=== PATIENT | female | born 1950 | race Caucasian/White ===

== ENCOUNTER 2021-11-30 20:49 | Observation (INO) ==
[2021-12-01] MEDS ORDERED: Ondansetron ODT 4 MG TAB.RAPDIS SL PRN
[2021-12-01] MEDS ORDERED: Naloxone 0.4 MG/ML INJ IVP PRN
[2021-12-01] MEDS ORDERED: Acetaminophen 325 MG TABLET PO PRN
[2021-12-01] MEDS ORDERED: Melatonin 3 MG TABLET PO PRN
[2021-12-01] MEDS ORDERED: Nitroglycerin 0.4 MG TAB.SUBL SL PRN (00:03)
[2021-12-01] MEDS ORDERED: D5% in Water 1,000 ML IVC PRN (00:04)
[2021-12-01] MEDS ORDERED: Dextrose Gel 15 GM/37.5 ML TUBE PO PRN ×2 (00:04)
[2021-12-01] MEDS ORDERED: *HR* Dextrose 50 % in Water (Syg) 50 ML SYRINGE IVP PRN (00:04)
[2021-12-01] MEDS: 0.9 % Sodium Chloride 1,000 ML IVC SCH ×2 (00:31→14:06)
[2021-12-01] MEDS ORDERED: clonazePAM 0.5 MG TABLET PO ONE (00:34)
[2021-12-01 02:46] LABS: Hematocrit 37.3 % (35.3-44.9); Hemoglobin 12.6 g/dL (11.5-15.4); Mean Corpuscular HGB Conc 33.8 g/dL (31.6-35.5); Mean Corpuscular Hemoglobin 27.5 pg (28.0-33.3); Mean Corpuscular Volume 81.3 fL (83.0-100.0); Mean Platelet Volume 8.8 fL (9.4-12.4); Platelet Count 430 K/mcL (140-400); Red Blood Count 4.59 M/mcL (3.82-4.97); Red Cell Distribution Width 13.4 % (11.5-14.5); White Blood Count 13.1 K/mcL (4.3-11.1)
[2021-12-01 02:49] LABS: Estimated Average Glucose 123 mg/dl; Hemoglobin A1C 5.9 %
[2021-12-01 03:09] LABS: Calcium 9.3 mg/dL (8.6-10.3); Chol/HDL Ratio 3.8 (0-4.9); Phosphorous 4.3 mg/dL (2.7-4.5); Potassium 3.4 mEq/L (3.5-5.1)
[2021-12-01 03:21] LABS: Thyroid Stimulating Hormone 0.747 mcIU/mL (0.340-5.600)
[2021-12-01] MEDS ORDERED: Regadenoson 0.4 MG/5 ML SYRINGE IVP ONE (05:44)
[2021-12-01 07:39] LABS: Bacteria,Urine Few per hpf (None-Few); Bilirubin,Urine Negative (Negative); Blood,Urine Negative (Negative); Clarity,Urine Clear (Clear); Color,Urine Colorless (Yellow); Glucose,Urine (UA) Normal (Normal); Ketones,Urine Negative (Negative); Leukocyte Esterase,Urine Trace (Negative); Mucus,Urine Few per lpf (None-Few); Nitrite,Urine Negative (Negative); PH,Urine 6.5 pH Units (5.0-8.0); Protein,Urine Negative (Neg-Trace); RBC,Urine 0-3 per hpf (0-3); Specific Gravity,Urine 1.016 (1.010-1.025); Squamous Epithelial Cell,Urine Few per hpf (None-Few); Urobilinogen,Urine Normal (Normal); WBC,Urine 0-3 per hpf (0-3)
[2021-12-01 07:43] LABS: Amphetamine Screen,Urine Negative ng/mL (Cutoff=1000); Barbiturate Screen,Urine Negative ng/mL (Cutoff=200); Benzodiazepines Screen,Urine Negative ng/mL (Cutoff=200); Cannabinoid Screen,Urine Negative ng/mL (Cutoff = 50); Cocaine Screen,Urine Negative ng/mL (Cutoff= 300); Opiate Screen,Urine Positive ng/mL (Cutoff=300); Phencyclidine Screen,Urine Negative ng/mL (Cutoff=25)
[2021-12-01] MEDS ORDERED: ALPRAZolam 0.25 MG TABLET PO ONE ×2 (08:34→10:08)
[2021-12-01] MEDS ORDERED: Aspirin 81 MG TAB.CHEW PO SCH ×2 (09:00)
[2021-12-01 10:34] VITALS: BP 146/81; PULSE 109; TEMP 97.6; O2SAT 94
== END 2021-12-01 15:29 | disposition home or self-care (01) ==
LOC: 3BNU → SUATTDRO 23:37
PROVIDERS: ADMIT Internal Medicine; ATTEND Internal Medicine